=== PATIENT | male | born 1950 | race Caucasian/White ===

== ENCOUNTER 2016-03-24 05:40 | Day surgery (SDC) | payer OTHER ==
[2016-03-24] VITALS (7 sets, daily range): BP systolic 135–148; BP diastolic 67–95; PULSE 73–93; RESP 13–16; O2SAT 94–100
[~2016-03-24] VITALS: Ht 182.9 cm; Wt 137.7 kg
[~2016-03-24 05:40] MED LIST: ALBU90AE IH; AMLO5TAB2 PO; ATOR20TA PO; CARV12.52 PO; CLOP75TA28 PO; CeFAZolin Inj 3 GM in Dextrose 5% 50 ML IV ONE; CeFAZolin Inj 3 GM in IV Premix 1 EACH IV ONE; FURO40TA4 PO; LEVA0.318 INHALATION; LISI-567 PO; Lactated Ringer's 1,000 ML IV SCH; METF500T4 PO; NITR0.4T6 SL; PANT40TA2 PO; SERT20OR6 PO; SPIR25TA PO; WARF5TAB7 PO
[2016-03-24] MEDS ORDERED: Ketamine 10 mg/mL 20 mL Inj ONE (05:41)
[2016-03-24] MEDS ORDERED: Propofol 10,000 mCg/mL 20 mL Inj ONE (05:41)
[2016-03-24] MEDS ORDERED: fentaNYL-PF 50 mCg/mL 2 mL Inj ONE (05:41)
[2016-03-24] MEDS: Lactated Ringer's 1,000 ML IV SCH ×2 (05:56→08:14)
[2016-03-24] MEDS ORDERED: CeFAZolin Inj 3 GM in IV Premix 1 EACH IV SCH (06:00)
[2016-03-24 06:52] LABS: BASOPHILS % (AUTO) 0.7 % (0-3); MONOCYTES % (AUTO) 11.5 % (4-12); Mean Corpuscular Hemoglobin 31.2 pg (27.0-35.0); Mean Corpuscular Volume 93.7 fL (81-100); NEUTROPHILS % (AUTO) 59.2 % (40-74); Platelet Count 266 bil/L (150-400)
[2016-03-24 07:05] LABS: INR 0.99 ratio
[2016-03-24] MEDS ORDERED: Lactated Ringer's 500 ML IV PRN (07:37)
[2016-03-24] MEDS ORDERED: Lactated Ringer's 1,000 ML IV SCH (07:37)
--- NOTE | 2016-03-24 07:37 | PCM.HPANE ---
Patient Data Date of Service: Mar 24, 2016 Surgeon Admitting Provider: Attending Provider:Reny Marinelli MD Primary Care Physician:Nicholas Gonzales DO Other Provider: Reason for Visit Left Ureteral Stone Ht/WT & BMI Height (Feet): 6 Height (Inches): 0 Weight (Kilograms): 137.7 Body Mass Index 41.00 Allergies Coded Allergies: No Known Allergies (Verified Allergy, Unknown, 03/23/16) Past Anesthesia History Anesthesia History: Denies:: Anesthesia Reactions Diabetes History Hx Diabetes?: Yes Type of Diabetes: Type II Glycemic Control: Oral Medication Current Bedside Blood Glucose: 114 MRSA MRSA: No Medications Blood Thinner: Coumadin, Plavix Hypertension Medication: Yes (amlodipine,lasix,lisinopril) Home Meds Incl Beta [place]: Yes (CARVEDILOL) Date Beta [place] Taken: Mar 23, 2016 Time Beta [place] Taken: 729 Active Scripts Lisinopril 20 Mg Eefxpo55 Mg PO DAILY 30 Days Prov:Robles Vallejo MD 01/04/16 Metformin 500 Mg Exprmo181 Mg PO BID 30 Days Ref 0 Prov:Saravanan Palma DO 06/12/15 Spironolactone (Aldactone)25 Mg Kydoap47 Mg PO DAILY 30 Days Prov:Saravanan Palma DO 06/12/15 Amlodipine 5 Mg Tablet5 Mg PO DAILY 30 Days Prov:Saravanan Palma DO 06/12/15 Clopidogrel 75 Mg Iyzbew82 Mg PO DAILY #30 TABLET Prov:Saravanan Palma DO 06/12/15 Reported Medications Levalbuterol 0.31 Mg/3 Ml Vial.neb0.31 Mg INHALATION 03/01/16 Furosemide 40 Mg Nfxlor75 Mg PO DAILY 03/01/16 Nitroglycerin SL 0.4 Mg Tab.subl0.4 Mg SL 03/01/[address] (Protonix)40 Mg Avaldf80 Mg PO DAILY Ref 0 12/27/15 Sertraline HCl (Sertraline)20 Mg/1 Ml Oral.koaq877 Mg PO DAILY #1 BOTTLE Ref 0 12/27/15 Albuterol Sulfate (Proair Respiclick)90 Mcg Aer.pow.ba2 Puffs IH QID PRN For Shortness of Breath 12/27/15 Atorvastatin (Lipitor)20 Mg Hvpltr41 Mg PO HS Ref 0 12/27/15 Warfarin Sodium 5 Mg Tablet5 Mg PO Xvp-Dij-Jwc 30 Days Ref 0 09/05/15 Warfarin Sodium 5 Mg Tablet7.5 Mg PO Monday and Monday 30 Days Ref 0 09/05/15 Carvedilol 12.5 Mg Skltll89.5 Mg PO BID Ref 0 09/05/15 History History of ENT Problems?: Yes HEENT History: Positive for:: Hearing Problem Sinus Problem (sinusitis) Denies:: Cataracts Dysphagia Hx of Heart Problems?: Yes Cardiovascular History: Positive for:: Atrial Fibrillation Cardiac Surgery (Stents to heart in ) Chest Pain Congestive Heart Failure Coronary Artery Disease Edema Hypertension (hyperlipidemia) Irregular Heartbeat (afib) Valvular Heart Disease (MOD AORTIC SCLEROSIS) Denies:: Heart Murmur (echo 12/2015 ef 55-60%) Pacemaker Thrombophlebitis Hx of Respiratory Problem?: Yes Respiratory History: Positive for:: COPD Pneumonia (Pneumonia in June 2015) Use of Inhalers / NEBS Denies:: Asthma Chest Surgery (RT MIDDLE LOBE NODULE-INTERVAL F/U ADVISED) Dyspnea Emphysema Hemoptysis Tuberculosis Use of C-PAP Machine (RAND+ PT REFUSED SLEEP STUDY) Hx Neurologic Problems?: Yes Neurological History: Denies:: CVA Hx of GI Problems?: Yes Gastrointestinal History: Positive for:: Gastroesphageal Reflux Heartburn Rectal Bleeding ( (Dec 2015)) Denies:: Diverticulitis Gastrointestinal Bleeding Hepatitis Hiatal Hernia Hx of Problems?: Yes Genitourinary History: Positive for:: Kidney Stones (HX PRIOR STONES S/P MULT STONE EXTRACTIONS,CYSTO/STENT 12/2015) Urinary Tract Infection Denies:: HX of Hemodialysis HX of Peritoneal Dialysis: No Other Pertinent History: LT URETERAL STONE=CURRENT PROBLEM C/OF PAIN,NAUSEA,FREQUENCY,URGENCY Male Hx: Positive for:: Prostate Problems (BPH) Denies:: Scrotal Mass Testicular Surgery Skin History: Denies:: History Skin Disorders? Pressure Ulcers Hx Musculoskeletal Problems?: Yes Musculoskeletal History: Denies:: Back Injury Joint Replacement Musculoskeletal Trauma Hx of Psycho/Social Problems?: Yes Psycho Social History: Positive for:: Hx Depression Denies:: Anxiety Hx Surgeries?: Yes (HEART CATHS W/ STENTING 2010-06/2015,MULT URETERAL STENTS, CYSTO/STENT 12/22) Hx Any Other Health Problems?: Yes Other History: Positive for:: Cancer (Kidney tumor ) Hospitalization (12/22 [facility]) Denies:: Thyroid Disease History Blood Transfusions: Positive for:: Accept Blood Products? Denies:: Blood Transfuse Reaction Blood Transfusions Hx Diabetes: YesBedside Blood Glucose: 114 Hx Alcohol Use: NoHx Substance Use: No Smoking Status: Former Smoker Have You Smoked inLast 12 mo: Yes Stop/Bang Treated for Sleep Apnea?: Yes Do You Have a CPAP Machine?: Yes S-Snoring: Do You Snore Loudly: Yes T-Tired: feel tired, fatigued: Yes O-Obsered: Observed not breath: Yes P-Blood Pressure: treated: Yes B- Body Mass Index > 35 kg/m2: Yes A- Age over 50: Yes N- Neck Large Circumference: Yes G- Gender Male: Yes RAND Total Score: 8 RAND Risk Assessment: High Risk, =/>3 Yes RAND Category 4 OutPt Procedure: Yes Risk Assessment Category Category 1A: Patient has history of documented sleep apnea, and HAS NOT received any narcotic, sedative or anesthesia administration during this stay. Category 1B: Patient has history of documented sleep apnea, and HAS received any narcotic , sedative or anesthesia administration during this stay Category 2: Patient has SUSPECTED Obstructive Sleep Apnea, and HAS received any narcotic , sedative or anesthesia administration during this stay. Category 3: Patient has SUSPECTED Obstructive Sleep Apnea and HAS NOT received narcotic, sedative or anesthesia administration during this stay. Category 4: Outpatient in Procedural Areas with known sleep apnea or who screen positive for High Risk via the STOP/BANG questionnaire. Exam Exam Vital Signs Vital Signs Date Time Temp Pulse Resp B/P Pulse Ox O2 Delivery O2 Flow Rate FiO2 03/24/16 06:05 36.3 93 16 148/95 95 Room Air General Appearance: Oriented X3, Cooperative, No Acute Distress HEENT/AIRWAY: MP 3, Neck Movement (Intact ROM), Mouth Opening (Large tongue extremely poor and missing dentition), Other (Full forman, thick neck, Known RAND) Lungs: Normal Air Movement (Reduced BS bilaterally No crackles) Heart: Normal S1, Normal S2 (No apparent Murmurs or extrasystole. No basilar crackles, 1-2+ PTE without hepatojugular reflex on exam.) Additional Information High risk patient with known CAD, CHF, Hx AF, COPD, untreated RAND with tobacco abuse recent hx, Morbid obesity. Pt denies stability in disease as his deconditioning is profound and requires substantial recovery following minimal flat, room-length ambulation. Not conversationally dyspneic. Pt denies over cardiac Sx and attrbutes Sx to deconditioning and pulmonary disease. Currently on plavix for 06/21 SHARON, and requires GA for procedure. R/B/I described to patient in presence of who both voice understanding and wish to proceed as patient is optomized to greatest extent possible for this necessary procedure. Meds/Labs/Diagnostics Admission Meds Current Medications Lactated Ringer's (Lr) 1,000 ml @ 120 mls/hr Q8H20M IV Last administered on t 05:56; Start 03/24/16 at 05:00; Stop 03/24/16 at 13:19 Bedside Blood Glucose: 114 Labs Test 03/24/16 06:30 White Blood Count 7.7th/mm3 (3.8-10.1) Red Blood Count 3.94mil/mm3 (4.40-5.80) Hemoglobin 12.3g/dL (13.8-17.2) Hematocrit 36.9% (41.0-50.0) Mean Corpuscular Volume 93.7fL (81-100) Mean Corpuscular Hemoglobin 31.2pg (27.0-35.0) Mean Corpuscular Hemoglobin Concent 33.3% (32.0-37.0) Red Cell Distribution Width 13.8% (12.3-15.4) Platelet Count 266bil/L (150-400) Neutrophils (%) (Auto) 59.2% (40-74) Lymphocytes (%) (Auto) 19.3% (14-46) Monocytes (%) (Auto) 11.5% (4-12) Eosinophils (%) (Auto) 9.0% (0-5) Basophils (%) (Auto) 0.7% (0-3) Additional Information 2016 TTE reviewed and found unchanged. Cath report and ECG reviewed. No morphologic changes evident in ECG when compared with prior. Plan Impression Patient chart reviewed, patient interviewed and anesthestic plan with risks, benefits, and alternatives discussed, and informed consent obtained. NPO Status: 03/23/16 ASA Physical Status: ASA3 Severe Disease Anesthetic Plan: GA Bene/Risks/Altern/Consents: Yes HP Complete Prior to Induction: Yes Saravanan Garcia DO Mar 24, 2016 07:37
[2016-03-24] MEDS ORDERED: HYDROmorphone 1 mg/mL Inj IVPUSH PRN (07:40)
[2016-03-24] MEDS ORDERED: Labetalol 5 mg/mL 4 mL Inj IV PRN (07:40)
[2016-03-24] MEDS ORDERED: EPHEDrine Sulfate 50 mg/mL Inj IVPUSH PRN (07:40)
[2016-03-24] MEDS ORDERED: Dexamethasone 4 mg/mL Inj IVPUSH PRN (07:40)
[2016-03-24] MEDS ORDERED: Phenylephrine 10,000 mCg/mL Inj IVPUSH PRN (07:40)
[2016-03-24] MEDS ORDERED: fentaNYL-PF 50 mCg/mL 2 mL Inj IVPUSH PRN (07:40)
[2016-03-24] MEDS ORDERED: MetoCLOpramide 5 mg/mL 2 mL Inj IVPUSH PRN (07:40)
[2016-03-24] MEDS ORDERED: Atropine 0.4 mg/mL Inj IVPUSH PRN (07:40)
[2016-03-24] MEDS ORDERED: Ondansetron 2 mg/mL 2 mL Inj IVPUSH PRN (07:40)
[2016-03-24] MEDS ORDERED: Belladonna Alk-Opium 60 mg Rectal Suppository RECTAL ONE (08:22)
--- NOTE | 2016-03-24 08:55 | PCM.ANEP1 ---
Post Anesthesia Phase 1 PACU Phase 1 Assessment Date of Service: Mar 24, 2016 Vital Signs Vital Signs Date Time Temp Pulse Resp B/P Pulse Ox O2 Delivery O2 Flow Rate FiO2 03/24/16 06:05 36.3 93 16 148/95 95 Room Air Anesthetic Administered: GA Level of Alertness: Sleepy, easy to arouse WILLARD's with Equal Strength: Yes Pain: No Nausea or Vomiting: No Airway Device: Oralpharangeal Airway Oxygen Delivery: Simple Mask Lungs: Clear to Auscultation, Normal Air Movement (Reduced BS bilaterally No crackles) Dermatome Level: Full Sensation Saravanan Garcia DO Mar 24, 2016 08:55
[2016-03-24] MEDS ORDERED: oxyCODONE-Acetamin 5-325 mg Tablet PO PRN (09:40)
--- NOTE | 2016-03-24 10:13 | OP ---
[address] [address] OPERATIVE REPORT PATIENT: CARMEN HIGUERA : 1950 MR#: [id number] ADMIT: 03/24/2016 JOB ID: [id number] DATE OF SURGERY: 03/24/2016 SURGEON: Reny Marinelli MD PREOPERATIVE DIAGNOSIS(ES): Left ureteral calculus. POSTOPERATIVE DIAGNOSIS(ES): Left ureteral calculus. PROCEDURES: Cystoscopy, ureteroscopy, laser lithotripsy, stone basketing and stent exchange. ANESTHESIA: General anesthetic, Dr. Garcia. DESCRIPTION OF PROCEDURE: Under general anesthetic, the patient was placed in lithotomy position. Genitalia prepped and draped in a sterile manner. A 22-Moldovan cystoscope was introduced through a normal urethra. Protruding to the left ureteral orifice was a double-J stent. This was grasped with a flexible grasping forceps and removed. A 0.035 Glidewire was then advanced to the level of the left renal pelvis. Over this, a 14-Moldovan access sheath was passed under fluoroscopic guidance up to the level of the calculus. The inner sheath and wire were removed. A 7-Moldovan flexible ureteroscope was then advanced through the access sheath. The stone was well visualized. A 270 micron laser fiber was used with the holmium laser and the stone fragmented. After fragmentation of the bulk of the stone, a nitinol tipless basket was then used to extract several fragments. The renal pelvis and calices were inspected and all were free of fragments larger than 1 mm. The cystoscope was reintroduced and a 6-Moldovan 24 cm double-J stent was placed in the left ureter. When the stent was confirmed to be in good position fluoroscopically, the wire was withdrawn. A B and O suppository was given for postoperative analgesia. The patient tolerated the procedure well, left the operating room in good condition.
--- NOTE | 2016-03-24 10:45 | PCM.ANEP2 ---
Post Anesthesia Evaluation ASA/CMS Post Anesthesia Date of Service: Mar 24, 2016 VS in Patient's Normal Range?: Yes Resp Stable; Airway Patent?: Yes CV Function & Hydration Stable: Yes Mental Status Recovered?: Yes Pain control Satisfactory?: Yes N/V Control Satisfactory?: Yes Saravanan Garcia DO Mar 24, 2016 10:45
[2016-04-01 09:12] LABS: Stone Color Brown (.)
== END 2016-03-24 23:59 | disposition home or self-care (01) ==
LOC: SAS 05:40
PROVIDERS: ATTEND Urology
DX: N20.1 Calculus of ureter (principal); I48.0 Paroxysmal atrial fibrillation; I25.10 Atherosclerotic heart disease of native coronary artery without angina pectoris; I10 Essential (primary) hypertension; E78.5 Hyperlipidemia, unspecified; G47.33 Obstructive sleep apnea (adult) (pediatric); I25.2 Old myocardial infarction; F32.9 Major depressive disorder, single episode, unspecified; E66.9 Obesity, unspecified; Z68.36 Body mass index [BMI] 36.0-36.9, adult; Z79.01 Long term (current) use of anticoagulants; Z95.5 Presence of coronary angioplasty implant and graft; Z79.84 Long term (current) use of oral hypoglycemic drugs; Z79.51 Long term (current) use of inhaled steroids
CPT/HCPCS: 36415; 52356; 76001; 80048; 82360; 85025; 85610; C2617; J0690; J2250; J3010; J7120

== ENCOUNTER 2016-11-02 13:08 | Emergency (ER) | payer OTHER ==
[~2016-11-02] VITALS: Ht 182.9 cm; Wt 136.4 kg
[~2016-11-02 13:08] MED LIST changes: -CeFAZolin Inj 3 GM in Dextrose 5% 50 ML IV ONE; -CeFAZolin Inj 3 GM in IV Premix 1 EACH IV ONE; -Lactated Ringer's 1,000 ML IV SCH; +NITR0.4T38 SL; -NITR0.4T6 SL
[2016-11-02 13:13] VITALS: BP 186/94; PULSE 92; RESP 16; O2SAT 98
--- NOTE | 2016-11-02 13:50 | ED.REPORT ---
HPI-Extremity Problem Lower Date of Service Nov 02, 2016 ED Provider: Junito Sam PA-C Boaz is a 65-year-old male with a history of CHF, COPD, CAD, DM, hyperlipidemia, GERD, HTN, A. fib and kidney disease presents emergency Department the chief complaint of MRSA. Patient reports bilateral lower leg swelling in 3 months ago after hospitalization. He reports several courses of Bactrim DS which have not completely resolved condition. Started a course 2 days ago with no improvement. Admit some shortness of breath. Denies fever, shaking chills, abdominal pain, vomiting, chest pain. Nursing Notes Stated Complaint: MRSA Chief Complaint: Extremity Trauma Nursing Notes Reviewed: Yes Allergies: Coded Allergies: No Known Allergies (Verified Allergy, Unknown, 11/02/16) Scheduled Amlodipine (Amlodipine) 5 Mg Tablet 5 MG PO DAILY Atorvastatin (Lipitor) 20 Mg Tablet 20 MG PO HS Carvedilol (Carvedilol) 12.5 Mg Tablet 12.5 MG PO BID Clopidogrel (Clopidogrel) 75 Mg Tablet 75 MG PO DAILY Furosemide (Furosemide) 40 Mg Tablet 40 MG PO DAILY Lisinopril (Lisinopril) 20 Mg Tablet 20 MG PO DAILY Metformin (Metformin) 500 Mg Tablet 500 MG PO BID Pantoprazole DR (Protonix) 40 Mg Tablet 40 MG PO DAILY Sertraline HCl (Sertraline) 20 Mg/1 Ml Oral.conc 100 MG PO DAILY Spironolactone (Aldactone) 25 Mg Tablet 25 MG PO DAILY Warfarin Sodium (Warfarin Sodium) 5 Mg Tablet 7.5 MG PO Monday and Monday Warfarin Sodium (Warfarin Sodium) 5 Mg Tablet 5 MG PO Zwo-Oqd-Mbw--Mon Scheduled PRN Albuterol Sulfate (Proair Respiclick) 90 Mcg Aer.pow.ba 2 PUFFS IH QID PRN PRN For Shortness of Breath Hydrocodone-Acetaminophen 5-325 mg (Hydrocodone-Acetaminophen 5-325 mg) 1 Each Tablet 1-2 TABLET PO Q4H PRN PRN For Pain Miscellaneous Medications Levalbuterol (Levalbuterol) 0.31 Mg/3 Ml Vial.neb 0.31 MG INHALATION Nitroglycerin SL (Nitroglycerin SL) 0.4 Mg Tab.subl 0.4 MG SL General Time Seen by MD: 13:30 Chief Complaint Other (bilateral leg swelling) Past Medical History Past Medical History Notes: [employer]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 Morales Past Medical History Myocardial infarct 2010, June 2015 Reports: COPD, Congestive heart failure, Coronary artery disease, Diabetes mellitus, GERD, Hyperlipidemia, Hypertension Reports: Atrial fibrillation, Kidney disease, Ureterolithiasis Past Surgical History cardiac stent 2x in 2010, and 2016 Smoking History Former Smoker Social History Alcohol Use: Denies alcohol use Drug Use: Denies drug use Other Social History: Good social support, , Local resident Ambulatory Status Independent Review of Systems Negative unless stated otherwise in history of present illness Physical Exam General: Well appearing, well developed, well nourished, no acute distress. Legs: 2+ pitting edema, warm, red to the knee. Several small weeping sores. DP pulses 2+ bilaterally. Head: Atraumatic, normocephalic. Eyes: No scleral icterus or injection. No discharge. Vision grossly intact. ENT: Voice clear, hearing grossly intact. Respiratory: Regular rate and rhythm. Breath sounds present, clear to auscultation and equal bilaterally. No respiratory distress. No increased work of breathing, speaks in complete sentences. Cardiovascular: Regular rate and rhythm, without murmur, gallop or rub. 2+ pitting edema bilaterally. Skin: Warm and dry. Neurological: Grossly nonfocal. Psychological: Alert and oriented. Speech appropriate, linear and logical. Behavior appropriate. Initial Vital Signs Vital Signs (First) Date Time Temp Pulse Resp B/P Pulse Ox O2 Delivery O2 Flow Rate FiO2 11/02/16 13:13 36.5 92 16 186/94 98 Room Air Elevated blood pressure Interpretation & Diagnostics Lab Results Interpretation Result Diagram: 11/02/16 1415 11/02/16 1415 Test 11/02/16 14:15 White Blood Count 5.9th/mm3 (3.8-10.1) Red Blood Count 3.50mil/mm3 (4.40-5.80) Hemoglobin 10.8g/dL (13.8-17.2) Hematocrit 33.2% (41.0-50.0) Mean Corpuscular Volume 94.9fL (81-100) Mean Corpuscular Hemoglobin 30.9pg (27.0-35.0) Mean Corpuscular Hemoglobin Concent 32.5% (32.0-37.0) Red Cell Distribution Width 15.4% (12.3-15.4) Platelet Count 236bil/L (150-400) Neutrophils (%) (Auto) 57.2% (40-74) Lymphocytes (%) (Auto) 19.9% (14-46) Monocytes (%) (Auto) 13.4% (4-12) Eosinophils (%) (Auto) 9.0% (0-5) Basophils (%) (Auto) 0.3% (0-3) Prothrombin Time 21.1sec (8.1-12.5) Prothromb Time International Ratio 1.95ratio Sodium Level 137mEq/L (134-144) Potassium Level 3.6mEq/L (3.5-5.2) Chloride Level 100mEq/L (97-108) Carbon Dioxide Level 26mmol/L (18-29) Blood Urea Nitrogen 18mg/dL (8-27) Creatinine 1.53mg/dL (0.76-1.27) Estimat Glomerular Filtration Rate 49mL/min (>59) Glucose Level 107mg/dL (60-99) Calcium Level 8.4mg/dL (8.5-10.1) Total Bilirubin 0.2mg/dL (0.0-1.2) Aspartate Amino Transf (AST/SGOT) 20U/L (0-50) Alanine Aminotransferase (ALT/SGPT) 20U/L (0-44) Alkaline Phosphatase 77U/L (25-160) Total Protein 7.0g/dL (6.4-8.4) Albumin 3.6g/dL (3.4-5.0) Hold Quijano Top Tube Received (Received) Re-Eval/Medical Decision Med Decision/Clinical Course 65 yo male with extensive medical history of present emergency department concerned for bilateral lower extremity cellulitis. Patient reports ongoing lower leg edema and pain since the hospitalization 3 months ago. 2 previous treatments with Bactrim DS for cellulitis. These did not completely resolve the condition. Patient started a third treatment 2 days ago and reports no improvement. Denies fever, chills, malaise, abdominal pain, vomiting. Physical examination reveals bilateral lower extremity pitting edema with redness and several small sores draining serous fluid. Patient is morbidly obese , multiple small excoriations on chest, arms. CBC is negative for leukocytosis but revealed mild anemia with hemoglobin of 10.8, hematocrit 33.2. CMP reveals an elevated creatinine at 1.53, estimated GFR of 49. Calcium slightly low at 8.4. I discussed the case with the patient's primary care provider, Dr. Gonzales. We agree this is most likely leg edema due to venous stasis, unlikely to be cellulitic. No concern for systemic infection. Advise continuing Bactrim DS, prescribed compression stockings and advised elevation. Advise regarding over- the-counter analgesia and prescribed a small amount of [place] to supplement with precautions. Advised regarding primary care follow-up, provided emergency return precautions. Patient verbalized understanding of, and consent to, the plan. Re-Evaluation/Progress : Time of Eval: 15:52 Re-Evaluation/Progress Note: Agrees with the plan, will see patient in clinic. Discharge & Departure Impression: Primary Impression: Leg swelling Disposition: Home Discharge Condition All VS Reviewed: Yes Condition: Stable Additional Instructions: Evaluation for possible cellulitis in the emergency department includes interview and physical examination as well as blood tests. These are reassuring that you do not have a severe infection at this time. I'll write a prescription for compression stockings to be worn during the day. I recommend finishing your course of antibiotics. I recommend baseline pain control with 1000 mg of acetaminophen (Tylenol) taken every 6 hours I'll write a prescription for a small amount of Vicodin, which can be SUBSTITUTED for the Tylenol. Do not drink alcohol or operate a vehicle within 4 hours of taking this medication. Follow-up with your primary care provider in the next few days for further assessment. Return to the emergency department for new or worsening symptoms including fever , increasing pain, redness, swelling or feeling ill. Referrals: Nicholas Gonzales DO (PCP) copies to: Nicholas Gonzales Seth PA-C Nov 02, 2016 13:50
[2016-11-02] MEDS ORDERED: HYDROcodone-APAP 5-325 mg Tablet PO ONE (14:10)
[2016-11-02 14:30] LABS: BASOPHILS % (AUTO) 0.3 % (0-3); MONOCYTES % (AUTO) 13.4 % (4-12); Mean Corpuscular Hemoglobin 30.9 pg (27.0-35.0); Mean Corpuscular Volume 94.9 fL (81-100); NEUTROPHILS % (AUTO) 57.2 % (40-74); Platelet Count 236 bil/L (150-400)
[2016-11-02 15:06] LABS: INR 1.95 ratio
[2016-11-02 15:30] VITALS: BP 180/80; PULSE 80; RESP 23; O2SAT 96
[2016-11-02] MEDS ORDERED: HYDR-4003 PO (15:36)
[2016-11-02 16:34] VITALS: BP 180/80; PULSE 80; RESP 23; O2SAT 96
== END 2016-11-02 16:34 | disposition home or self-care (01) ==
LOC: SED 13:08
DX: M79.89 Other specified soft tissue disorders (principal); I25.2 Old myocardial infarction; I11.0 Hypertensive heart disease with heart failure; I50.9 Heart failure, unspecified; I25.10 Atherosclerotic heart disease of native coronary artery without angina pectoris; K21.9 Gastro-esophageal reflux disease without esophagitis; E78.5 Hyperlipidemia, unspecified; Z87.891 Personal history of nicotine dependence; Z79.84 Long term (current) use of oral hypoglycemic drugs; Z79.01 Long term (current) use of anticoagulants